=== PATIENT | male | born 1970 | race Caucasian/White ===

== ENCOUNTER → 2016-12-21 | Outpatient (CLI) | payer OTHER | LOC: CARD 10:48 | PROVIDERS: ATTEND Internal Medicine Cardiovascular Disease | DX: I10 Essential (primary) hypertension (principal); E66.9 Obesity, unspecified | CPT/HCPCS: 93306 ==

== ENCOUNTER 2021-07-16 06:31 | Outpatient (CLI) | payer BC ==
[~2021-07-16] VITALS: Ht 177.8 cm; Wt 91.0 kg
[2021-07-16] MEDS ORDERED: NFNEB10T PO (11:13)
[2021-07-16] MEDS ORDERED: AMLO-250 PO (11:14)
[2021-07-16] MEDS ORDERED: ESCI10TA PO (11:16)
[2021-07-16] MEDS ORDERED: BUPR100T15 PO (11:17)
[2021-07-16] MEDS ORDERED: SIMV20TA26 PO (11:18)
== END 2021-07-16 11:55 ==
LOC: PREOP 06:31
PROVIDERS: ATTEND Surgery
DX: Z01.818 Encounter for other preprocedural examination (principal)

== ENCOUNTER 2021-07-28 08:37 | Day surgery (SDC) | payer BC ==
[~2021-07-28] VITALS: Ht 177.8 cm; Wt 99.0 kg
[~2021-07-28 08:37] MED LIST: AMLO-250 PO; BUPR100T15 PO; ESCI10TA PO; NFNEB10T PO; SIMV20TA26 PO
[2021-07-28] MEDS ORDERED: LACTATED RINGERS 1,000 ML IV ONE (08:41)
[2021-07-28] MEDS ORDERED: LACTATED RINGERS 1,000 ML IV STA (08:44)
[2021-07-28 08:50] VITALS: BP 128/88
--- NOTE | 2021-07-28 09:10 | Progress Note-Pre Operative ---
Pre-Operative Progress Note H&P Reviewed The H&P was reviewed, patient examined and no changes noted. Date Seen by Provider: Jul 28, 2021 Time Seen by Provider: 09:10 Date H&P Reviewed: Jul 28, 2021 Time H&P Reviewed: 09:10 Pre-Operative Diagnosis: screening colonoscopy BRANDON RAMACHANDRAN DO Jul 28, 2021 09:10
[2021-07-28] MEDS ORDERED: PROPOFOL INJECTION 50 ML IV ONE (09:59)
--- NOTE | 2021-07-28 10:23 | Anesthesia-General Post-Op ---
MAC Patient Condition Mental Status/LOC: Same as Preop Cardiovascular: Satisfactory Nausea/Vomiting: Absent Respiratory: Satisfactory Pain: Controlled Complications: Absent Post Op Complications Complications None Follow Up Care/Instructions Patient Instructions None needed. Anesthesiology Discharge Order Discharge Order Patient is doing well, no complaints, stable vital signs, no apparent adverse anesthesia problems. No complications reported per nursing. ULYSSES BOX CRNA Jul 28, 2021 10:23
[2021-07-28 10:25] VITALS: BP 136/72
--- NOTE | 2021-07-28 10:26 | Progress Note-Post Operative ---
Post-Operative Progess Note Surgeon (s)/Primary Care Provider (s) Surgeon BRANDON RAMACHANDRAN DO Primary Care Provider: na Pre-Operative Diagnosis screening colonoscopy Post-Operative Diagnosis Diverticulosis. Polyps. Procedure & Operative Findings Date of Procedure 07/28/21 Procedure Performed/Findings Colonoscopy with hot biopsy polypectomy x 2 Anesthesia Type per ACCOUNTING METHODS ANALYST Estimated Blood Loss Estimated blood loss (mL): none Specimens/Packing Specimens Removed Hepatic flexure polyp x1. Sigmoid polyp x1. BRANDON RAMACHANDRAN DO Jul 28, 2021 10:26
--- NOTE | 2021-07-28 10:28 | Discharge Inst-Simple/Standard ---
Discharge Inst-Standard Patient Instructions/Follow Up Plan of Care/Instructions/FU: 2-3 weeks Davin Activity as Tolerated: Yes Discharge Diet: Regular Diet (high fiber) BRANDON RAMACHANDRAN DO Jul 28, 2021 10:28
[2021-07-28 10:30] VITALS: BP 140/79
[2021-07-28 10:50] VITALS: BP 123/91
[2021-07-28 11:00] VITALS: BP 123/91
--- NOTE | 2021-07-28 14:35 | OPERATIVE REPORT ---
DATE OF SERVICE: 07/28/2021 PREOPERATIVE DIAGNOSIS: Screening colonoscopy. POSTOPERATIVE DIAGNOSES: Diverticulosis and colon polyps. PROCEDURES PERFORMED: Colonoscopy with hot biopsy polypectomy x2. SURGEON: Brandon Jin DO. ANESTHESIA: Per STATISTICAL METHODS PROFESSOR. ESTIMATED BLOOD LOSS: None. COMPLICATIONS: None. INDICATIONS FOR PROCEDURE: The patient is a 51-year-old male needing screening colonoscopy. He understands risks and benefits of the procedure and wishes to proceed. Consent was signed in the chart. DESCRIPTION OF PROCEDURE: The patient was taken to the endoscopy suite and placed in the left lateral recumbent position. A timeout was performed. Digital rectal exam was performed. No palpable polyps, masses or ulcerations. Scope was inserted in the rectum and advanced all the way to cecum with minimal difficulty. Prep was adequate. Scope was then slowly retracted back using as well. No polyps, masses or ulcerations within the cecum, ascending colon. In the hepatic flexure, a small polyp was present, which hot biopsy polypectomy was performed. Scope was then continuously and slowly retracted back. No polyps, masses or ulcerations in the transverse and descending colon. In sigmoid colon, minimal amount of diverticulosis was present. A small polyp was present as well, which hot biopsy polypectomy was performed. Scope was then slowly retracted back to the rectum, where it was also retroflexed noting no other pathology. Scope was returned to its normal position, slowly withdrawn until completely removed. The patient tolerated the procedure well without any complications. He was taken to recovery room in stable condition. RECOMMENDATIONS: The patient will need repeat colonoscopy in five years. We would also recommend a high-fiber diet due to diverticulosis. Any issues before that be seen at that time. Job ID: [id number] DocumentID: [id number] Dictated Date: 07/28/2021 10:31:09 Production Inspector Date: 07/28/2021 14:34:29 Dictated By: BRANDON JIN DO
== END 2021-07-28 11:00 | disposition home or self-care (01) ==
LOC: ENDO 08:37
PROVIDERS: ATTEND Surgery
DX: Z12.11 Encounter for screening for malignant neoplasm of colon (principal); K63.5 Polyp of colon; K57.30 Diverticulosis of large intestine without perforation or abscess without bleeding; E66.9 Obesity, unspecified; Z68.31 Body mass index [BMI] 31.0-31.9, adult; G47.33 Obstructive sleep apnea (adult) (pediatric)

== ENCOUNTER → 2022-11-09 | Outpatient (CLI) | payer BC, SELFPAY ==
--- NOTE | 2022-11-09 10:05 | Diagnostic Imaging Report ---
EXAMINATION: CT calcium scoring without contrast. TECHNIQUE: Multiple contiguous axial images were obtained through the chest without the use of intravenous contrast for purposes of calcium scoring. All CT scans use one or more of the following dose optimizing techniques: automated exposure control, MA and/or KvP adjustment based on patient size and exam type or iterative reconstruction. HISTORY: Coronary artery disease risk factors COMPARISON: None available. FINDINGS: The calculated coronary artery calcium score is zero. There is no edema or pneumonia. No pleural effusion. No pneumothorax. No suspicious nodules. There is mild bibasilar atelectasis. Heart size is normal. No pericardial effusion. Aorta is normal in caliber. There is no mediastinal lymphadenopathy. Limited views of the upper abdomen are unremarkable. There are no suspicious osseus lesions. IMPRESSION: 1. Calculated coronary artery calcium score of zero. Dictated by: Dictated on workstation # [id number]
== END ==
LOC: RAD 07:43
PROVIDERS: ATTEND Nurse Practitioner Family
DX: Z00.01 Encounter for general adult medical examination with abnormal findings (principal); Z76.0 Encounter for issue of repeat prescription; E78.49 Other hyperlipidemia; F52.21 Male erectile disorder; U07.1 COVID-19; I10 Essential (primary) hypertension; F41.1 Generalized anxiety disorder; F33.1 Major depressive disorder, recurrent, moderate; Z20.828 Contact with and (suspected) exposure to other viral communicable diseases
CPT/HCPCS: 75571